=== PATIENT | female | born 1950 | race Caucasian/White ===

== ENCOUNTER 2017-03-17 03:28 | Inpatient (IN) | payer OTHER ==
[~2017-03-17] VITALS: Ht 152.4 cm; Wt 120.0 kg
[2017-03-17] VITALS (16 sets, daily range): BP systolic 62–93; BP diastolic 44–59
[2017-03-17 03:56] LABS: HEMATOCRIT 47.6 % (36.0-46.0); HEMOGLOBIN 15.4 G/DL (11.9-15.5); MCH 29.3 PG (29.0-34.0); MCHC 32.4 G/DL (30.0-36.0); MCV 90.7 FL (83-99); PLATELET COUNT 361 K/uL (156-360); RBC DIS.WIDTH-CV 13.3 % (11.8-14.6); RBC DIS.WIDTH-SD 45.1 % (39-53); RED BLOOD COUNT 5.25 M/uL (3.80-5.20); WHITE BLOOD COUNT 8.5 K/uL (4.1-10.2)
[2017-03-17 04:06] LABS: ALBUMIN 3.4 g/dL (3.2-4.8)
[2017-03-17 04:07] LABS: CHLORIDE 100 mEq/L (99-109); POTASSIUM 3.7 mEq/L (3.7-5.4); SODIUM 135 mEq/L (136-147)
[2017-03-17 04:09] LABS: GLUCOSE 186 mg/dL (70-99); TOTAL PROTEIN 7.2 g/dL (6.4-8.3)
[2017-03-17 04:11] LABS: TOTAL BILIRUBIN 2.5 mg/dL (0.0-1.0)
[2017-03-17 04:12] LABS: ALKALINE PHOSPHATASE 54 IU/L (3-129)
[2017-03-17 04:13] LABS: CREATININE 2.8 mg/dL (0.6-1.3); GFR ESTIMATE (CALCULATED) 18 mL/min/
[2017-03-17 04:14] LABS: AST (GOT) 25 IU/L (2-34); UREA NITROGEN (BUN) 29 mg/dL (9-23)
[2017-03-17 04:16] LABS: ALT (GPT) 24 IU/L (3-49)
[2017-03-17 04:17] LABS: TROP-I INTERPRETATION INDETERMINATE; TROPONIN-I 0.49 ng/mL (0.0-0.30)
[2017-03-17 04:53] LABS: APPEARANCE CLOUDY ((CLEAR)); COLOR DK YELLOW ((YELLOW))
[2017-03-17 04:54] LABS: BILIRUBIN NEGATIVE; BLOOD TRACE; GLUCOSE (STRIP) NEGATIVE; KETONES NEGATIVE; LEUKOCYTES NEGATIVE; NITRITE NEGATIVE; PROTEIN (STRIP) TRACE; UROBILINOGEN 0.2 MG/DL (0.2-1.0)
[2017-03-17 04:55] LABS: RED BLOOD CELLS 0-5 /HPF (0-5); WHITE BLOOD CELLS 0-5 /HPF (0-5)
[2017-03-17 04:56] LABS: AMORPHOUS URATES CRYSTALS 3+; BACTERIA 2+ /HPF; EPITHELIAL CELLS 3+ /HPF; MUCUS 3+ /LPF; UCUL ADDED? YES
[2017-03-17 10:41] LABS: TROP-I INTERPRETATION NEGATIVE; TROPONIN-I 0.26 ng/mL (0.0-0.30)
[2017-03-17 12:55] LABS: HEMATOCRIT 40.2 % (36.0-46.0); MCHC 31.6 G/DL (30.0-36.0); RBC DIS.WIDTH-CV 13.9 % (11.8-14.6); RED BLOOD COUNT 4.24 M/uL (3.80-5.20)
[2017-03-17 12:58] LABS: HEMOGLOBIN 12.7 G/DL (11.9-15.5); MCV 94.8 FL (83-99)
[2017-03-17 13:19] LABS: ABS NEUTROPHIL COUNT 5.7; ALKALINE PHOSPHATASE 26 IU/L (3-129); ALT (GPT) 22 IU/L (3-49); AST (GOT) 51 IU/L (2-34); BAND NEUTROPHILS 67.6 % (0-8.0); BURR CELLS 1+; CHLORIDE 115 MEQ/L (99-109); EOSINOPHIL ABS CT 0; LYMPHOCYTES 17.1 % (15.0-45.0); MAGNESIUM 1.4 mg/dl (1.3-2.7); METAMYELOCYTES 1.8 %; MONOCYTES 5.4 % (0-9.0); MYELOCYTES 4.5 %; OVALOCYTES 1+; PHOSPHORUS 4.3 mg/dL (2.5-4.9); PLAT.SUFFICIENCY ADEQUATE; PLATELET CLUMPS PRESENT - PLATELET COUNT APPEARS ADQ.; PLATELET COUNT UNABLE TO REPORT K/uL (156-360); POIKILOCYTOSIS 2+; SEG.NEUTROPHILS 3.6 % (46.0-76.0); SODIUM 138 MEQ/L (136-147); TOTAL BILIRUBIN 1.2 MG/DL (0.0-1.0); TOTAL PROTEIN 3.9 G/DL (6.4-8.3); TOX.VACUOLIZATION 2+; UREA NITROGEN (BUN) 33 mg/dL (9-23)
[2017-03-17 13:20] LABS: CREATININE 2.2 MG/DL (0.6-1.3); GFR ESTIMATE (CALCULATED) 24 mL/min/; GLUCOSE 89 mg/dL (70-99); POTASSIUM 5.5 MEQ/L (3.7-5.4)
[2017-03-18] VITALS (28 sets, daily range): BP systolic 82–129; BP diastolic 45–75
[2017-03-18 11:33] LABS: HEMATOCRIT 34.6 % (36.0-46.0); MCH 28.7 PG (29.0-34.0); MCHC 30.6 G/DL (30.0-36.0); MCV 93.8 FL (83-99); PLATELET COUNT 215 K/uL (156-360); RBC DIS.WIDTH-CV 14.4 % (11.8-14.6); RBC DIS.WIDTH-SD 50.3 % (39-53); RED BLOOD COUNT 3.69 M/uL (3.80-5.20)
[2017-03-18 11:34] LABS: CHLORIDE 113 MEQ/L (99-109); GLUCOSE 87 mg/dL (70-99); POTASSIUM 5.8 MEQ/L (3.7-5.4); SODIUM 139 MEQ/L (136-147); UREA NITROGEN (BUN) 45 mg/dL (9-23)
[2017-03-18 11:38] LABS: HEMOGLOBIN 10.6 G/DL (11.9-15.5)
[2017-03-18 11:52] LABS: ABS NEUTROPHIL COUNT 9.8; BURR CELLS 3+; EOSINOPHIL ABS CT 0; LYMPHOCYTES 3.8 % (15.0-45.0); METAMYELOCYTES 1.9 %; MONOCYTES 4.8 % (0-9.0); OVALOCYTES 1+; PLAT.SUFFICIENCY ADEQUATE; POIKILOCYTOSIS 3+
[2017-03-18 11:53] LABS: CREATININE 3.5 MG/DL (0.6-1.3); GFR ESTIMATE (CALCULATED) 14 mL/min/
[2017-03-18 12:01] LABS: TROP-I INTERPRETATION INDETERMINATE; TROPONIN-I 0.38 ng/mL (0.0-0.30)
[2017-03-18 12:04] LABS: BAND NEUTROPHILS 24.8 % (0-8.0); SEG.NEUTROPHILS 64.7 % (46.0-76.0)
[2017-03-18 17:51] LABS: CHLORIDE 109 MEQ/L (99-109); GFR ESTIMATE (CALCULATED) 12 mL/min/; GLUCOSE 183 mg/dL (70-99); POTASSIUM 4.9 MEQ/L (3.7-5.4); SODIUM 137 MEQ/L (136-147); UREA NITROGEN (BUN) 48 mg/dL (9-23)
[2017-03-19] VITALS (23 sets, daily range): BP systolic 115–167; BP diastolic 61–88
[2017-03-19 04:52] LABS: HEMATOCRIT 28.1 % (36.0-46.0); HEMOGLOBIN 9.1 G/DL (11.9-15.5); MCH 29.3 PG (29.0-34.0); MCHC 32.4 G/DL (30.0-36.0); MCV 90.4 FL (83-99); PLATELET COUNT 154 K/uL (156-360); RBC DIS.WIDTH-CV 14.6 % (11.8-14.6); RBC DIS.WIDTH-SD 48.9 % (39-53); RED BLOOD COUNT 3.11 M/uL (3.80-5.20); WHITE BLOOD COUNT 8.7 K/uL (4.1-10.2)
[2017-03-19 05:05] LABS: ALBUMIN 2.9 g/dL (3.2-4.8); CHLORIDE 104 mEq/L (99-109); POTASSIUM 4.5 mEq/L (3.7-5.4); SODIUM 138 mEq/L (136-147)
[2017-03-19 05:07] LABS: GLUCOSE 166 mg/dL (70-99)
[2017-03-19 05:11] LABS: ALKALINE PHOSPHATASE 35 IU/L (3-129); CREATININE 4.6 mg/dL (0.6-1.3); GFR ESTIMATE (CALCULATED) 10 mL/min/
[2017-03-19 05:12] LABS: UREA NITROGEN (BUN) 50 mg/dL (9-23)
[2017-03-19 05:35] LABS: ALT (GPT) 46 IU/L (3-49); AST (GOT) 118 IU/L (2-34)
[2017-03-19 05:37] LABS: BASOPHIL (%) 0.3 % (0-1); EOSINOPHIL (%) 0.3 % (0-5); IMMATURE GRANULOCYTE (%) 0.3 % (0.0-0.7); LYMPHOCYTE (%) 6.2 % (15-42); LYMPHOCYTE COUNT 0.5 K/uL (1.0-2.8); MONOCYTE (%) 4.3 % (3-12); MONOCYTE COUNT 0.4 K/uL (0-0.8); NEUTROPHIL (%) 88.6 % (45-76); NEUTROPHIL COUNT 7.7 K/uL (1.8-6.4)
[2017-03-19] MEDS ORDERED: COZAAR100 MG PO (12:24)
[2017-03-19] MEDS ORDERED: LIPITOR40 MG PO (12:24)
[2017-03-20] VITALS (14 sets, daily range): BP systolic 145–209; BP diastolic 72–110
[2017-03-20 09:28] LABS: BASOPHIL (%) 0.2 % (0-1); EOSINOPHIL (%) 0.7 % (0-5); EOSINOPHIL COUNT 0.1 K/uL (0-0.3); HEMATOCRIT 30.7 % (36.0-46.0); IMMATURE GRANULOCYTE (%) 0.7 % (0.0-0.7); LYMPHOCYTE (%) 7.9 % (15-42); LYMPHOCYTE COUNT 0.7 K/uL (1.0-2.8); MCH 29.5 PG (29.0-34.0); MCHC 32.6 G/DL (30.0-36.0); MCV 90.6 FL (83-99); MONOCYTE (%) 7.1 % (3-12); MONOCYTE COUNT 0.6 K/uL (0-0.8); NEUTROPHIL (%) 83.4 % (45-76); NEUTROPHIL COUNT 7.4 K/uL (1.8-6.4); PLATELET COUNT 160 K/uL (156-360); RBC DIS.WIDTH-CV 14.8 % (11.8-14.6); RBC DIS.WIDTH-SD 49.1 % (39-53); RED BLOOD COUNT 3.39 M/uL (3.80-5.20); WHITE BLOOD COUNT 8.9 K/uL (4.1-10.2)
[2017-03-20 09:55] LABS: CHLORIDE 104 MEQ/L (99-109); GFR ESTIMATE (CALCULATED) 8 mL/min/; POTASSIUM 4.4 MEQ/L (3.7-5.4); SODIUM 143 MEQ/L (136-147); UREA NITROGEN (BUN) 63 mg/dL (9-23)
[2017-03-20 09:56] LABS: CREATININE 5.7 MG/DL (0.6-1.3); GLUCOSE 90 mg/dL (70-99)
[2017-03-21 02:00] VITALS: BP 185/84
[2017-03-21 03:00] VITALS: BP 178/54
[2017-03-21 06:28] LABS: CHLORIDE 102 MEQ/L (99-109); GFR ESTIMATE (CALCULATED) 7 mL/min/; GLUCOSE 87 mg/dL (70-99); POTASSIUM 4.6 MEQ/L (3.7-5.4); SODIUM 143 MEQ/L (136-147); UREA NITROGEN (BUN) 80 mg/dL (9-23)
[2017-03-21 08:00] VITALS: BP 171/81
[2017-03-21 08:01] LABS: BASOPHIL (%) 0.2 % (0-1); EOSINOPHIL (%) 0.5 % (0-5); HEMATOCRIT 35.1 % (36.0-46.0); HEMOGLOBIN 11.6 G/DL (11.9-15.5); IMMATURE GRANULOCYTE (%) 0.8 % (0.0-0.7); LYMPHOCYTE (%) 10.5 % (15-42); LYMPHOCYTE COUNT 0.9 K/uL (1.0-2.8); MCH 29.4 PG (29.0-34.0); MCV 88.9 FL (83-99); MONOCYTE (%) 11.6 % (3-12); NEUTROPHIL (%) 76.4 % (45-76); NEUTROPHIL COUNT 6.3 K/uL (1.8-6.4); RBC DIS.WIDTH-CV 14.6 % (11.8-14.6); RBC DIS.WIDTH-SD 47.7 % (39-53); RED BLOOD COUNT 3.95 M/uL (3.80-5.20); WHITE BLOOD COUNT 8.3 K/uL (4.1-10.2)
[2017-03-21 08:21] LABS: PLATELET CLUMPS PRESENT - PLATELET COUNT APPEARS ADQ.
[2017-03-21 08:22] LABS: PLATELET COUNT UNABLE TO REPORT K/uL (156-360)
[2017-03-21 08:28] LABS: Estimated Average Glucose 134 mg/dL (70-123); HEMOGLOBIN A1c (GLYCOHEMOGLOB) 6.3 % HGB (Below 5.7)
[2017-03-21 11:50] VITALS: BP 124/76; BP 154/84
[2017-03-21 16:00] VITALS: BP 161/78; BP 171/98
[2017-03-21 20:29] LABS: C DIFF TOXIN POSITIVE (NEGATIVE)
[2017-03-21 22:04] VITALS: BP 184/80
[2017-03-22 01:31] VITALS: BP 158/76
[2017-03-22 05:39] VITALS: BP 159/70
[2017-03-22 06:41] LABS: CHLORIDE 99 MEQ/L (99-109); CREATININE 5.1 MG/DL (0.6-1.3); GFR ESTIMATE (CALCULATED) 9 mL/min/; GLUCOSE 94 mg/dL (70-99); POTASSIUM 3.8 MEQ/L (3.7-5.4); SODIUM 138 MEQ/L (136-147); UREA NITROGEN (BUN) 94 mg/dL (9-23)
[2017-03-22 07:11] LABS: HEMOGLOBIN 10.8 G/DL (11.9-15.5); MCH 28.6 PG (29.0-34.0); MCHC 32.7 G/DL (30.0-36.0); MCV 87.3 FL (83-99); PLATELET COUNT 232 K/uL (156-360); RBC DIS.WIDTH-CV 14.3 % (11.8-14.6); RBC DIS.WIDTH-SD 45.9 % (39-53); RED BLOOD COUNT 3.78 M/uL (3.80-5.20); WHITE BLOOD COUNT 13.2 K/uL (4.1-10.2)
[2017-03-22 07:41] LABS: ANISOCYTOSIS 1+; BASOPHIL (%) 0.3 % (0-1); EOSINOPHIL (%) 0.8 % (0-5); EOSINOPHIL COUNT 0.1 K/uL (0-0.3); LYMPHOCYTE (%) 10.7 % (15-42); LYMPHOCYTE COUNT 1.4 K/uL (1.0-2.8); MONOCYTE (%) 7.5 % (3-12); NEUTROPHIL (%) 79.7 % (45-76); NEUTROPHIL COUNT 10.5 K/uL (1.8-6.4)
[2017-03-22 08:28] VITALS: BP 151/74
[2017-03-22 11:13] VITALS: BP 159/82
[2017-03-22 14:12] LABS: APPEARANCE SL.HAZY ((CLEAR)); BILIRUBIN NEGATIVE; BLOOD LARGE; COLOR YELLOW ((YELLOW)); GLUCOSE (STRIP) NEGATIVE; KETONES NEGATIVE; LEUKOCYTES NEGATIVE; NITRITE NEGATIVE; PROTEIN (STRIP) 30; SPECIFIC GRAVITY 1.013 (1.000-1.030); UROBILINOGEN 0.2 MG/DL (0.2-1.0)
[2017-03-22 14:28] LABS: RED BLOOD CELLS TNTC /HPF (0-5)
[2017-03-22 14:29] LABS: EPITHELIAL CELLS 1+ /HPF; MUCUS NONE SEEN /LPF; WHITE BLOOD CELLS NONE SEEN /HPF (0-5)
[2017-03-22 14:30] LABS: BACTERIA 1+ /HPF
[2017-03-22 15:21] VITALS: BP 166/84
[2017-03-22 20:45] VITALS: BP 152/70
[2017-03-23] VITALS (7 sets, daily range): BP systolic 134–178; BP diastolic 62–79
[2017-03-23 05:32] LABS: HEMATOCRIT 34.1 % (36.0-46.0); HEMOGLOBIN 11.1 G/DL (11.9-15.5); MCH 29.1 PG (29.0-34.0); MCHC 32.6 G/DL (30.0-36.0); MCV 89.3 FL (83-99); PLATELET COUNT 243 K/uL (156-360); RBC DIS.WIDTH-CV 14.6 % (11.8-14.6); RBC DIS.WIDTH-SD 47.4 % (39-53); RED BLOOD COUNT 3.82 M/uL (3.80-5.20); WHITE BLOOD COUNT 22.8 K/uL (4.1-10.2)
[2017-03-23 06:02] LABS: CHLORIDE 101 MEQ/L (99-109); CREATININE 4.7 MG/DL (0.6-1.3); GFR ESTIMATE (CALCULATED) 10 mL/min/; GLUCOSE 87 mg/dL (70-99); HDL CHOLESTEROL 25 MG/DL (Desirable>=50); LDL CHOLESTEROL 41 mg/dL (Desirable<100); NON-HDL CHOLESTEROL 85 mg/dL (Desirable<160); PHOSPHORUS 5.6 mg/dL (2.5-4.9); POTASSIUM 3.8 MEQ/L (3.7-5.4); SODIUM 141 MEQ/L (136-147); TOTAL CHOLESTEROL 110 mg/dL (Desirable<200); TRIGLYCERIDES 222 MG/DL (Normal: <150); UREA NITROGEN (BUN) 92 mg/dL (9-23)
[2017-03-23 06:07] LABS: ABS NEUTROPHIL COUNT 20.5; ATYPICAL LYMPHOCYTE 0.9 %; EOSINOPHIL ABS CT 0.3; EOSINOPHILS 1.3 % (0-5.0); LYMPHOCYTES 5.2 % (15.0-45.0); MONOCYTES 2.6 % (0-9.0); OVALOCYTES 1+; PLAT.SUFFICIENCY ADEQUATE; SCHISTOCYTES 1+
[2017-03-23 06:08] LABS: BAND NEUTROPHILS 0.4 % (0-8.0); SEG.NEUTROPHILS 89.6 % (46.0-76.0)
[2017-03-23 06:10] LABS: MAGNESIUM 1.8 mg/dl (1.3-2.7)
[2017-03-24 03:00] VITALS: BP 171/71
[2017-03-24 08:24] LABS: HEMATOCRIT 31.7 % (36.0-46.0); HEMOGLOBIN 10.6 G/DL (11.9-15.5); MCH 29.8 PG (29.0-34.0); MCHC 33.4 G/DL (30.0-36.0); PLATELET COUNT 306 K/uL (156-360); RBC DIS.WIDTH-CV 14.5 % (11.8-14.6); RBC DIS.WIDTH-SD 47.1 % (39-53); RED BLOOD COUNT 3.56 M/uL (3.80-5.20); WHITE BLOOD COUNT 23.5 K/uL (4.1-10.2)
[2017-03-24 08:25] VITALS: BP 141/67
[2017-03-24 08:51] LABS: ALBUMIN 2.2 G/DL (3.2-4.8); CHLORIDE 102 MEQ/L (99-109); SODIUM 136 MEQ/L (136-147)
[2017-03-24 08:53] LABS: TOTAL BILIRUBIN 0.7 MG/DL (0.0-1.0)
[2017-03-24 08:57] LABS: ALT (GPT) 19 IU/L (3-49); CREATININE 3.6 MG/DL (0.6-1.3); GFR ESTIMATE (CALCULATED) 13 mL/min/; GLUCOSE 117 mg/dL (70-99); TOTAL PROTEIN 4.7 G/DL (6.4-8.3); UREA NITROGEN (BUN) 83 mg/dL (9-23)
[2017-03-24 08:58] LABS: ALKALINE PHOSPHATASE 57 IU/L (3-129); AST (GOT) 18 IU/L (2-34)
[2017-03-24 11:57] VITALS: BP 164/75
[2017-03-24 16:40] VITALS: BP 151/72
[2017-03-24 19:00] VITALS: BP 169/79
[2017-03-24 23:00] VITALS: BP 171/74
[2017-03-25] VITALS (8 sets, daily range): BP systolic 160–191; BP diastolic 72–93
[2017-03-25 05:52] LABS: HEMATOCRIT 31.5 % (36.0-46.0); HEMOGLOBIN 10.2 G/DL (11.9-15.5); MCH 28.4 PG (29.0-34.0); MCHC 32.4 G/DL (30.0-36.0); MCV 87.7 FL (83-99); PLATELET COUNT 391 K/uL (156-360); RBC DIS.WIDTH-CV 14.3 % (11.8-14.6); RBC DIS.WIDTH-SD 46.4 % (39-53); RED BLOOD COUNT 3.59 M/uL (3.80-5.20); WHITE BLOOD COUNT 22.6 K/uL (4.1-10.2)
[2017-03-25 06:19] LABS: BASOPHIL (%) 0.2 % (0-1); EOSINOPHIL (%) 1.1 % (0-5); EOSINOPHIL COUNT 0.2 K/uL (0-0.3); IMMATURE GRANULOCYTE (%) 1.1 % (0.0-0.7); LYMPHOCYTE (%) 6.8 % (15-42); LYMPHOCYTE COUNT 1.5 K/uL (1.0-2.8); MONOCYTE (%) 5.5 % (3-12); MONOCYTE COUNT 1.3 K/uL (0-0.8); NEUTROPHIL (%) 85.3 % (45-76); NEUTROPHIL COUNT 19.3 K/uL (1.8-6.4)
[2017-03-25 06:29] LABS: CHLORIDE 102 MEQ/L (99-109); GFR ESTIMATE (CALCULATED) 17 mL/min/; GLUCOSE 106 mg/dL (70-99); MAGNESIUM 1.7 mg/dl (1.3-2.7); PHOSPHORUS 5.3 mg/dL (2.5-4.9); POTASSIUM 3.6 MEQ/L (3.7-5.4); SODIUM 138 MEQ/L (136-147); UREA NITROGEN (BUN) 78 mg/dL (9-23)
[2017-03-25 06:30] LABS: CREATININE 2.9 MG/DL (0.6-1.3)
[2017-03-26] VITALS (7 sets, daily range): BP systolic 138–160; BP diastolic 8–80
[2017-03-26 07:11] LABS: BASOPHIL (%) 0.2 % (0-1); EOSINOPHIL (%) 1.4 % (0-5); EOSINOPHIL COUNT 0.3 K/uL (0-0.3); HEMATOCRIT 32.3 % (36.0-46.0); HEMOGLOBIN 10.8 G/DL (11.9-15.5); IMMATURE GRANULOCYTE (%) 0.8 % (0.0-0.7); LYMPHOCYTE (%) 7.7 % (15-42); LYMPHOCYTE COUNT 1.5 K/uL (1.0-2.8); MCH 29.5 PG (29.0-34.0); MCHC 33.4 G/DL (30.0-36.0); MCV 88.3 FL (83-99); MONOCYTE (%) 6.9 % (3-12); MONOCYTE COUNT 1.4 K/uL (0-0.8); NEUTROPHIL COUNT 16.4 K/uL (1.8-6.4); PLATELET COUNT 439 K/uL (156-360); RBC DIS.WIDTH-CV 14.6 % (11.8-14.6); RBC DIS.WIDTH-SD 46.8 % (39-53); RED BLOOD COUNT 3.66 M/uL (3.80-5.20); WHITE BLOOD COUNT 19.8 K/uL (4.1-10.2)
[2017-03-26 07:38] LABS: ALBUMIN 2.1 G/DL (3.2-4.8); ALKALINE PHOSPHATASE 53 IU/L (3-129); ALT (GPT) 24 IU/L (3-49); AST (GOT) 23 IU/L (2-34); CHLORIDE 106 MEQ/L (99-109); GLUCOSE 116 mg/dL (70-99); MAGNESIUM 1.6 mg/dl (1.3-2.7); PHOSPHORUS 5.3 mg/dL (2.5-4.9); POTASSIUM 4.1 MEQ/L (3.7-5.4); SODIUM 138 MEQ/L (136-147); UREA NITROGEN (BUN) 69 mg/dL (9-23)
[2017-03-26 07:41] LABS: CREATININE 2.3 MG/DL (0.6-1.3); GFR ESTIMATE (CALCULATED) 23 mL/min/; TOTAL BILIRUBIN 0.9 MG/DL (0.0-1.0)
[2017-03-27 04:15] VITALS: BP 155/70
[2017-03-27 07:24] LABS: BASOPHIL (%) 0.3 % (0-1); BASOPHIL COUNT 0.1 K/uL (0-0.1); EOSINOPHIL (%) 0.9 % (0-5); EOSINOPHIL COUNT 0.2 K/uL (0-0.3); HEMATOCRIT 32.4 % (36.0-46.0); HEMOGLOBIN 10.4 G/DL (11.9-15.5); IMMATURE GRANULOCYTE (%) 0.7 % (0.0-0.7); LYMPHOCYTE (%) 8.6 % (15-42); LYMPHOCYTE COUNT 1.6 K/uL (1.0-2.8); MCH 28.3 PG (29.0-34.0); MCHC 32.1 G/DL (30.0-36.0); MCV 88.3 FL (83-99); MONOCYTE (%) 9.1 % (3-12); MONOCYTE COUNT 1.7 K/uL (0-0.8); NEUTROPHIL (%) 80.4 % (45-76); NEUTROPHIL COUNT 14.6 K/uL (1.8-6.4); PLATELET COUNT 555 K/uL (156-360); RBC DIS.WIDTH-CV 14.6 % (11.8-14.6); RBC DIS.WIDTH-SD 46.9 % (39-53); RED BLOOD COUNT 3.67 M/uL (3.80-5.20); WHITE BLOOD COUNT 18.1 K/uL (4.1-10.2)
[2017-03-27 07:50] LABS: CHLORIDE 106 MEQ/L (99-109); CREATININE 2.1 MG/DL (0.6-1.3); GFR ESTIMATE (CALCULATED) 25 mL/min/; GLUCOSE 108 mg/dL (70-99); MAGNESIUM 1.6 mg/dl (1.3-2.7); PHOSPHORUS 4.9 mg/dL (2.5-4.9); POTASSIUM 4.3 MEQ/L (3.7-5.4); SODIUM 139 MEQ/L (136-147); UREA NITROGEN (BUN) 58 mg/dL (9-23)
[2017-03-27 08:30] VITALS: BP 168/70
[2017-03-27 12:43] VITALS: BP 140/74
[2017-03-27 16:30] VITALS: BP 146/78
[2017-03-28] VITALS (7 sets, daily range): BP systolic 142–164; BP diastolic 60–70
[2017-03-28 06:06] LABS: CHLORIDE 107 MEQ/L (99-109); CREATININE 1.9 MG/DL (0.6-1.3); GFR ESTIMATE (CALCULATED) 28 mL/min/; GLUCOSE 105 mg/dL (70-99); POTASSIUM 4.6 MEQ/L (3.7-5.4); SODIUM 138 MEQ/L (136-147); UREA NITROGEN (BUN) 56 mg/dL (9-23)
[2017-03-29 04:16] VITALS: BP 152/70
[2017-03-29 05:54] LABS: BASOPHIL (%) 0.4 % (0-1); BASOPHIL COUNT 0.1 K/uL (0-0.1); EOSINOPHIL (%) 1.5 % (0-5); EOSINOPHIL COUNT 0.2 K/uL (0-0.3); HEMOGLOBIN 10.2 G/DL (11.9-15.5); IMMATURE GRANULOCYTE (%) 0.7 % (0.0-0.7); LYMPHOCYTE (%) 13.2 % (15-42); LYMPHOCYTE COUNT 1.8 K/uL (1.0-2.8); MCH 28.9 PG (29.0-34.0); MCHC 32.9 G/DL (30.0-36.0); MCV 87.8 FL (83-99); MONOCYTE (%) 11.3 % (3-12); MONOCYTE COUNT 1.5 K/uL (0-0.8); NEUTROPHIL (%) 72.9 % (45-76); NEUTROPHIL COUNT 9.9 K/uL (1.8-6.4); PLATELET COUNT 546 K/uL (156-360); RBC DIS.WIDTH-CV 14.6 % (11.8-14.6); RBC DIS.WIDTH-SD 46.6 % (39-53); RED BLOOD COUNT 3.53 M/uL (3.80-5.20); WHITE BLOOD COUNT 13.5 K/uL (4.1-10.2)
[2017-03-29 06:21] LABS: CHLORIDE 110 MEQ/L (99-109); CREATININE 1.9 MG/DL (0.6-1.3); GFR ESTIMATE (CALCULATED) 28 mL/min/; GLUCOSE 96 mg/dL (70-99); POTASSIUM 3.8 MEQ/L (3.7-5.4); SODIUM 142 MEQ/L (136-147); UREA NITROGEN (BUN) 51 mg/dL (9-23)
[2017-03-29 08:37] VITALS: BP 150/74
[2017-03-29 11:24] VITALS: BP 144/64
[2017-03-29 16:37] VITALS: BP 136/82
[2017-03-29 19:26] VITALS: BP 146/68
[2017-03-30 00:05] VITALS: BP 144/76
[2017-03-30 04:19] VITALS: BP 142/84
[2017-03-30 06:22] LABS: CHLORIDE 110 MEQ/L (99-109); SODIUM 140 MEQ/L (136-147)
[2017-03-30 06:23] LABS: CREATININE 1.7 MG/DL (0.6-1.3); GFR ESTIMATE (CALCULATED) 32 mL/min/; GLUCOSE 107 mg/dL (70-99); UREA NITROGEN (BUN) 47 mg/dL (9-23)
[2017-03-30 06:24] LABS: POTASSIUM 4.8 MEQ/L (3.7-5.4)
[2017-03-30 06:38] LABS: BASOPHIL (%) 0.4 % (0-1); BASOPHIL COUNT 0.1 K/uL (0-0.1); EOSINOPHIL COUNT 0.1 K/uL (0-0.3); HEMATOCRIT 29.5 % (36.0-46.0); HEMOGLOBIN 9.9 G/DL (11.9-15.5); IMMATURE GRANULOCYTE (%) 0.7 % (0.0-0.7); LYMPHOCYTE (%) 11.1 % (15-42); LYMPHOCYTE COUNT 1.6 K/uL (1.0-2.8); MCH 29.6 PG (29.0-34.0); MCHC 33.6 G/DL (30.0-36.0); MCV 88.3 FL (83-99); MONOCYTE (%) 10.4 % (3-12); MONOCYTE COUNT 1.5 K/uL (0-0.8); NEUTROPHIL (%) 76.4 % (45-76); NEUTROPHIL COUNT 10.7 K/uL (1.8-6.4); RBC DIS.WIDTH-CV 14.9 % (11.8-14.6); RBC DIS.WIDTH-SD 48.2 % (39-53); RED BLOOD COUNT 3.34 M/uL (3.80-5.20)
[2017-03-30 06:50] LABS: PLAT.SUFFICIENCY INCREASED
[2017-03-30 06:53] LABS: PLATELET COUNT 370 K/uL (156-360)
[2017-03-30 07:45] LABS: POTASSIUM 4.7 MEQ/L (3.7-5.4)
[2017-03-30 08:02] VITALS: BP 134/78
[2017-03-30] MEDS ORDERED: VANCOMYCIN HCL125 MG PO (10:05)
[2017-03-30 11:49] VITALS: BP 138/82
== END 2017-03-30 14:56 | disposition home health service (06) | DRG 871 ==
LOC: EME 03:28 → SDC 06:20 → ENRESERV 06:35 → 4EAST 08:15 → 3EAST 08:15 → 4WEST 08:15 → 2SOUTH 08:15 → 4WEST 10:18 → ENRESERV 03-20 18:11 → 4EAST 03-20 22:52 → ENRESERV 03-25 20:39 → 3EAST 03-25 23:10
PROVIDERS: Emergency Medicine Emergency Medical Services; Family Medicine; Internal Medicine Critical Care Medicine; Internal Medicine Nephrology; Nurse Practitioner Adult Health; Physician Assistant Surgical; Surgery
PROC: 3E1M38Z Irrigation of Peritoneal Cavity using Irrigating Substance, Percutaneous Approach (ICD-10-PCS; principal; 2017-03-17)
PROC: 05HM33Z Insertion of Infusion Device into Right Internal Jugular Vein, Percutaneous Approach (ICD-10-PCS; principal; 2017-03-17)
DX: A41.9 Sepsis, unspecified organism (principal); K57.21 Diverticulitis of large intestine with perforation and abscess with bleeding; N17.0 Acute kidney failure with tubular necrosis; A04.72 Enterocolitis due to Clostridium difficile, not specified as recurrent; E78.5 Hyperlipidemia, unspecified; I48.91 Unspecified atrial fibrillation; I44.7 Left bundle-branch block, unspecified; R65.21 Severe sepsis with septic shock; I11.9 Hypertensive heart disease without heart failure; Z68.42 Body mass index [BMI] 45.0-49.9, adult; E66.9 Obesity, unspecified; K80.20 Calculus of gallbladder without cholecystitis without obstruction; K21.0 Gastro-esophageal reflux disease with esophagitis; E87.2 Acidosis; E87.70 Fluid overload, unspecified; E87.5 Hyperkalemia; E83.51 Hypocalcemia; J18.9 Pneumonia, unspecified organism; E11.9 Type 2 diabetes mellitus without complications; E87.6 Hypokalemia; I25.9 Chronic ischemic heart disease, unspecified; K66.8 Other specified disorders of peritoneum; Z91.19 Patient's noncompliance with other medical treatment and regimen; Z79.4 Long term (current) use of insulin; Z87.442 Personal history of urinary calculi
CPT/HCPCS: 71045; 71250; 74176; 80047; 80048; 80048 91; 80053; 80061; 81003; 83036; 83605; 83735; 84100; 84484; 84999; 85025; 85027; 87040; 87070; 87077; 87086; 87493; 87506; 87641; 93005; 94799; 97530 GO; 97530 GP; 99281; 99285; C1751; J0330; J1170; J1644; J1650; J1815; J1940; J2250; J2270; J2370; J2405; J2543; J2710; J3010; J3243; J3260; J7040; J7050; J7070; J7120; P9047; S0028

== ENCOUNTER 2017-04-09 22:06 | Emergency (ER) | payer OTHER ==
[~2017-04-09] VITALS: Ht 147.3 cm; Wt 103.2 kg
[~2017-04-09 22:06] MED LIST: COZAAR100 MG PO; LIPITOR40 MG PO; VANCOMYCIN HCL125 MG PO
[2017-04-09 22:59] LABS: HEMATOCRIT 31.2 % (36.0-46.0); HEMOGLOBIN 10.2 G/DL (11.9-15.5); MCH 28.9 PG (29.0-34.0); MCHC 32.7 G/DL (30.0-36.0); MCV 88.4 FL (83-99); PLATELET COUNT 504 K/uL (156-360); RBC DIS.WIDTH-CV 14.6 % (11.8-14.6); RBC DIS.WIDTH-SD 47.1 % (39-53); RED BLOOD COUNT 3.53 M/uL (3.80-5.20); WHITE BLOOD COUNT 11.1 K/uL (4.1-10.2)
[2017-04-09 23:11] LABS: CHLORIDE 103 mEq/L (99-109); SODIUM 139 mEq/L (136-147)
[2017-04-09 23:13] LABS: GLUCOSE 101 mg/dL (70-99)
[2017-04-09 23:16] LABS: POTASSIUM 2.6 mEq/L (3.7-5.4)
[2017-04-09 23:17] LABS: CREATININE 0.8 mg/dL (0.6-1.3); GFR ESTIMATE (CALCULATED) > 59 mL/min/; TROP-I INTERPRETATION NEGATIVE; TROPONIN-I 0.03 ng/mL (0.0-0.30); UREA NITROGEN (BUN) 6 mg/dL (9-23)
[2017-04-10] MEDS ORDERED: NEBULIZER MC (05:08)
[2017-04-10] MEDS ORDERED: ALBUTEROL2.5 MG/3 M IH (05:08)
[2017-04-10] MEDS ORDERED: XARELTO15 MG PO (05:08)
[2017-04-10 05:43] VITALS: BP 160/65
== END 2017-04-10 05:44 | disposition home or self-care (01) ==
LOC: EME 22:06
PROVIDERS: Emergency Medicine Emergency Medical Services
DX: I26.99 Other pulmonary embolism without acute cor pulmonale (principal); R18.8 Other ascites; J45.909 Unspecified asthma, uncomplicated; N17.9 Acute kidney failure, unspecified; E78.5 Hyperlipidemia, unspecified; I10 Essential (primary) hypertension; Z88.6 Allergy status to analgesic agent
CPT/HCPCS: 71046; 71275; 80048; 83880; 84484; 85027; 85379; 93005; 94640; 99281; 99285

== ENCOUNTER → 2017-04-18 | Outpatient (CLI) | payer OTHER ==
[~2017-04-18] MED LIST changes: +ALBUTEROL2.5 MG/3 M IH; +DIFLUCAN100 MG PO; +NEBULIZER MC; +NORCO 5/3251 TABLET PO; +PRILOSEC20 MG PO; +XARELTO15 MG PO
[2017-04-18 08:33] LABS: INTER. NORMALIZED RATIO 1.4
[2017-04-18 08:36] LABS: PTT 28.4 SEC (25-37)
== END | disposition home or self-care (01) ==
LOC: OPR 07:49 → EDSTATUS 08:00 → OPR 04-20 08:00
PROVIDERS: Surgery
PROC: 0WH Anatomical Regions, General, Insertion (ICD-10-PCS; principal; 2017-04-18)
DX: K57.20 Diverticulitis of large intestine with perforation and abscess without bleeding (principal); B95.61 Methicillin susceptible Staphylococcus aureus infection as the cause of diseases classified elsewhere; I10 Essential (primary) hypertension; E78.5 Hyperlipidemia, unspecified; Z79.01 Long term (current) use of anticoagulants
CPT/HCPCS: 49406; 85610; 85730; 87147; 87205; C1769; J3010

== ENCOUNTER 2017-04-26 17:50 | Inpatient (IN) | payer OTHER ==
[~2017-04-26] VITALS: Ht 124.5 cm; Wt 92.9 kg
[2017-04-26 19:31] LABS: BASOPHIL (%) 0.1 % (0-1); EOSINOPHIL (%) 0.3 % (0-5); HEMATOCRIT 24.5 % (36.0-46.0); IMMATURE GRANULOCYTE (%) 0.6 % (0.0-0.7); LYMPHOCYTE (%) 8.5 % (15-42); LYMPHOCYTE COUNT 1.1 K/uL (1.0-2.8); MCH 27.6 PG (29.0-34.0); MCHC 33.1 G/DL (30.0-36.0); MONOCYTE (%) 4.2 % (3-12); MONOCYTE COUNT 0.6 K/uL (0-0.8); NEUTROPHIL (%) 86.3 % (45-76); NEUTROPHIL COUNT 11.6 K/uL (1.8-6.4); PLATELET COUNT 563 K/uL (156-360); RBC DIS.WIDTH-CV 15.2 % (11.8-14.6); RBC DIS.WIDTH-SD 46.5 % (39-53); RED BLOOD COUNT 2.93 M/uL (3.80-5.20); WHITE BLOOD COUNT 13.5 K/uL (4.1-10.2)
[2017-04-26 19:32] LABS: HEMOGLOBIN 8.1 G/DL (11.9-15.5); MCV 83.6 FL (83-99)
[2017-04-26 19:37] LABS: ALBUMIN 2.5 g/dL (3.2-4.8); CHLORIDE 91 mEq/L (99-109); SODIUM 134 mEq/L (136-147)
[2017-04-26 19:39] LABS: GLUCOSE 116 mg/dL (70-99); TOTAL PROTEIN 6.4 g/dL (6.4-8.3)
[2017-04-26 19:41] LABS: TOTAL BILIRUBIN 0.9 mg/dL (0.0-1.0)
[2017-04-26 19:43] LABS: ALKALINE PHOSPHATASE 67 IU/L (3-129); CREATININE 0.9 mg/dL (0.6-1.3); GFR ESTIMATE (CALCULATED) > 59 mL/min/
[2017-04-26 19:44] LABS: AST (GOT) 24 IU/L (2-34); UREA NITROGEN (BUN) 13 mg/dL (9-23)
[2017-04-26 19:46] LABS: ALT (GPT) 12 IU/L (3-49)
[2017-04-26 19:52] LABS: POTASSIUM 2.4 mEq/L (3.7-5.4)
[2017-04-26] MEDS ORDERED: AMOX TR-K CLV1 EAC4 PO (23:20)
[2017-04-26] MEDS ORDERED: ENDOCET 5-3251 EACH PO (23:21)
[2017-04-26] MEDS ORDERED: ATORVASTATIN CA10 MG PO (23:21)
[2017-04-26] MEDS ORDERED: LOSARTAN POTAS100 MG PO (23:22)
[2017-04-26] MEDS ORDERED: POTASSIUM-9999 MG PO (23:23)
[2017-04-26] MEDS ORDERED: TYLENOL EXTRA500 MG PO (23:24)
[2017-04-26] MEDS ORDERED: XARELTO20 MG PO (23:39)
[2017-04-27] VITALS (7 sets, daily range): BP systolic 118–140; BP diastolic 58–82
[2017-04-27 08:11] LABS: BASOPHIL (%) 0.2 % (0-1); EOSINOPHIL (%) 0.7 % (0-5); EOSINOPHIL COUNT 0.1 K/uL (0-0.3); HEMATOCRIT 23.7 % (36.0-46.0); HEMOGLOBIN 7.5 G/DL (11.9-15.5); IMMATURE GRANULOCYTE (%) 0.9 % (0.0-0.7); LYMPHOCYTE (%) 12.7 % (15-42); LYMPHOCYTE COUNT 1.6 K/uL (1.0-2.8); MCH 27.4 PG (29.0-34.0); MCHC 31.6 G/DL (30.0-36.0); MCV 86.5 FL (83-99); MONOCYTE (%) 5.7 % (3-12); MONOCYTE COUNT 0.7 K/uL (0-0.8); NEUTROPHIL (%) 79.8 % (45-76); NEUTROPHIL COUNT 9.8 K/uL (1.8-6.4); PLATELET COUNT 502 K/uL (156-360); RBC DIS.WIDTH-CV 15.8 % (11.8-14.6); RBC DIS.WIDTH-SD 49.6 % (39-53); RED BLOOD COUNT 2.74 M/uL (3.80-5.20); WHITE BLOOD COUNT 12.3 K/uL (4.1-10.2)
[2017-04-27 09:17] LABS: CHLORIDE 95 MEQ/L (99-109); GFR ESTIMATE (CALCULATED) 59 mL/min/; GLUCOSE 104 mg/dL (70-99); SODIUM 134 MEQ/L (136-147); UREA NITROGEN (BUN) 13 mg/dL (9-23)
[2017-04-27 09:20] LABS: POTASSIUM 3.1 MEQ/L (3.7-5.4)
[2017-04-27 15:00] LABS: ALBUMIN 2.2 G/DL (3.2-4.8); ALKALINE PHOSPHATASE 59 IU/L (3-129); ALT (GPT) 10 IU/L (3-49); AST (GOT) 24 IU/L (2-34); CHLORIDE 96 MEQ/L (99-109); GFR ESTIMATE (CALCULATED) 59 mL/min/; MAGNESIUM 1.2 mg/dl (1.3-2.7); SODIUM 133 MEQ/L (136-147); TOTAL BILIRUBIN 0.6 MG/DL (0.0-1.0); UREA NITROGEN (BUN) 13 mg/dL (9-23)
[2017-04-27 15:34] LABS: GLUCOSE 163 mg/dL (70-99)
[2017-04-28 03:50] VITALS: BP 107/57
[2017-04-28 07:38] VITALS: BP 147/73
[2017-04-28 08:08] LABS: BASOPHIL (%) 0.4 % (0-1); EOSINOPHIL COUNT 0.1 K/uL (0-0.3); HEMATOCRIT 23.2 % (36.0-46.0); HEMOGLOBIN 7.3 G/DL (11.9-15.5); IMMATURE GRANULOCYTE (%) 0.9 % (0.0-0.7); LYMPHOCYTE (%) 20.9 % (15-42); LYMPHOCYTE COUNT 1.6 K/uL (1.0-2.8); MCH 27.7 PG (29.0-34.0); MCHC 31.5 G/DL (30.0-36.0); MCV 87.9 FL (83-99); MONOCYTE (%) 6.8 % (3-12); MONOCYTE COUNT 0.5 K/uL (0-0.8); NEUTROPHIL COUNT 5.4 K/uL (1.8-6.4); PLATELET COUNT 513 K/uL (156-360); RBC DIS.WIDTH-CV 16.2 % (11.8-14.6); RBC DIS.WIDTH-SD 52.3 % (39-53); RED BLOOD COUNT 2.64 M/uL (3.80-5.20); WHITE BLOOD COUNT 7.8 K/uL (4.1-10.2)
[2017-04-28 08:48] LABS: CHLORIDE 95 MEQ/L (99-109); CREATININE 0.9 MG/DL (0.6-1.3); GFR ESTIMATE (CALCULATED) > 59 mL/min/; GLUCOSE 123 mg/dL (70-99); POTASSIUM 3.6 MEQ/L (3.7-5.4); SODIUM 135 MEQ/L (136-147); UREA NITROGEN (BUN) 13 mg/dL (9-23)
[2017-04-28 08:52] LABS: MAGNESIUM 1.7 mg/dl (1.3-2.7)
[2017-04-28 11:28] VITALS: BP 141/73
[2017-04-28 15:57] VITALS: BP 170/80
[2017-04-28 20:23] VITALS: BP 140/80
[2017-04-29] VITALS (7 sets, daily range): BP systolic 137–158; BP diastolic 58–90
[2017-04-29 06:24] LABS: BASOPHIL (%) 0.3 % (0-1); EOSINOPHIL (%) 0.7 % (0-5); EOSINOPHIL COUNT 0.1 K/uL (0-0.3); HEMOGLOBIN 7.6 G/DL (11.9-15.5); IMMATURE GRANULOCYTE (%) 0.7 % (0.0-0.7); LYMPHOCYTE (%) 20.1 % (15-42); LYMPHOCYTE COUNT 1.5 K/uL (1.0-2.8); MCH 27.8 PG (29.0-34.0); MCHC 31.7 G/DL (30.0-36.0); MCV 87.9 FL (83-99); MONOCYTE (%) 6.9 % (3-12); MONOCYTE COUNT 0.5 K/uL (0-0.8); NEUTROPHIL (%) 71.3 % (45-76); NEUTROPHIL COUNT 5.3 K/uL (1.8-6.4); PLATELET COUNT 554 K/uL (156-360); RBC DIS.WIDTH-CV 16.3 % (11.8-14.6); RBC DIS.WIDTH-SD 51.5 % (39-53); RED BLOOD COUNT 2.73 M/uL (3.80-5.20); WHITE BLOOD COUNT 7.4 K/uL (4.1-10.2)
[2017-04-29 06:49] LABS: CHLORIDE 98 MEQ/L (99-109); CREATININE 0.9 MG/DL (0.6-1.3); GFR ESTIMATE (CALCULATED) > 59 mL/min/; GLUCOSE 114 mg/dL (70-99); POTASSIUM 4.2 MEQ/L (3.7-5.4); SODIUM 137 MEQ/L (136-147); UREA NITROGEN (BUN) 9 mg/dL (9-23)
[2017-04-30 03:34] VITALS: BP 132/72
[2017-04-30 08:00] VITALS: BP 157/75
[2017-04-30 11:23] LABS: BASOPHIL (%) 0.3 % (0-1); EOSINOPHIL (%) 0.1 % (0-5); HEMATOCRIT 27.8 % (36.0-46.0); HEMOGLOBIN 8.6 G/DL (11.9-15.5); IMMATURE GRANULOCYTE (%) 0.5 % (0.0-0.7); LYMPHOCYTE (%) 24.8 % (15-42); LYMPHOCYTE COUNT 2.5 K/uL (1.0-2.8); MCHC 30.9 G/DL (30.0-36.0); MCV 87.4 FL (83-99); MONOCYTE (%) 5.7 % (3-12); MONOCYTE COUNT 0.6 K/uL (0-0.8); NEUTROPHIL (%) 68.6 % (45-76); NEUTROPHIL COUNT 6.8 K/uL (1.8-6.4); PLATELET COUNT 593 K/uL (156-360); RBC DIS.WIDTH-CV 16.6 % (11.8-14.6); RBC DIS.WIDTH-SD 51.3 % (39-53); RED BLOOD COUNT 3.18 M/uL (3.80-5.20); WHITE BLOOD COUNT 9.9 K/uL (4.1-10.2)
[2017-04-30 11:53] LABS: CHLORIDE 100 MEQ/L (99-109); CREATININE 0.7 MG/DL (0.6-1.3); GFR ESTIMATE (CALCULATED) > 59 mL/min/; GLUCOSE 118 mg/dL (70-99); MAGNESIUM 1.5 mg/dl (1.3-2.7); POTASSIUM 4.3 MEQ/L (3.7-5.4); SODIUM 137 MEQ/L (136-147); UREA NITROGEN (BUN) 7 mg/dL (9-23)
[2017-04-30 16:00] VITALS: BP 153/86
[2017-05-01 16:00] VITALS: BP 164/92
[2017-05-02 00:20] VITALS: BP 176/80
[2017-05-02 05:31] LABS: BASOPHIL (%) 0.3 % (0-1); EOSINOPHIL (%) 0.1 % (0-5); HEMATOCRIT 26.5 % (36.0-46.0); HEMOGLOBIN 8.3 G/DL (11.9-15.5); IMMATURE GRANULOCYTE (%) 0.4 % (0.0-0.7); LYMPHOCYTE (%) 31.6 % (15-42); LYMPHOCYTE COUNT 2.4 K/uL (1.0-2.8); MCH 27.1 PG (29.0-34.0); MCHC 31.3 G/DL (30.0-36.0); MCV 86.6 FL (83-99); MONOCYTE (%) 7.8 % (3-12); MONOCYTE COUNT 0.6 K/uL (0-0.8); NEUTROPHIL (%) 59.8 % (45-76); NEUTROPHIL COUNT 4.4 K/uL (1.8-6.4); PLATELET COUNT 490 K/uL (156-360); RBC DIS.WIDTH-CV 17.1 % (11.8-14.6); RBC DIS.WIDTH-SD 52.1 % (39-53); RED BLOOD COUNT 3.06 M/uL (3.80-5.20); WHITE BLOOD COUNT 7.4 K/uL (4.1-10.2)
[2017-05-02 05:41] LABS: CHLORIDE 102 MEQ/L (99-109); CREATININE 0.8 MG/DL (0.6-1.3); GFR ESTIMATE (CALCULATED) > 59 mL/min/; GLUCOSE 110 mg/dL (70-99); MAGNESIUM 1.4 mg/dl (1.3-2.7); SODIUM 137 MEQ/L (136-147); UREA NITROGEN (BUN) 4 mg/dL (9-23)
[2017-05-02 07:25] VITALS: BP 154/82
[2017-05-02 15:47] VITALS: BP 150/76
[2017-05-02 22:36] VITALS: BP 163/90
[2017-05-03 06:12] LABS: BASOPHIL (%) 0.4 % (0-1); EOSINOPHIL (%) 0.1 % (0-5); HEMATOCRIT 30.3 % (36.0-46.0); HEMOGLOBIN 9.3 G/DL (11.9-15.5); IMMATURE GRANULOCYTE (%) 0.5 % (0.0-0.7); LYMPHOCYTE (%) 32.3 % (15-42); LYMPHOCYTE COUNT 2.7 K/uL (1.0-2.8); MCH 26.8 PG (29.0-34.0); MCHC 30.7 G/DL (30.0-36.0); MCV 87.3 FL (83-99); MONOCYTE (%) 7.3 % (3-12); MONOCYTE COUNT 0.6 K/uL (0-0.8); NEUTROPHIL (%) 59.4 % (45-76); NEUTROPHIL COUNT 4.9 K/uL (1.8-6.4); PLATELET COUNT 521 K/uL (156-360); RBC DIS.WIDTH-CV 17.1 % (11.8-14.6); RBC DIS.WIDTH-SD 54.6 % (39-53); RED BLOOD COUNT 3.47 M/uL (3.80-5.20); WHITE BLOOD COUNT 8.2 K/uL (4.1-10.2)
[2017-05-03 07:19] VITALS: BP 170/87
[2017-05-03 11:45] VITALS: BP 180/80
[2017-05-03 16:00] VITALS: BP 172/86
[2017-05-03 23:29] VITALS: BP 164/79
[2017-05-04 11:29] VITALS: BP 154/74
[2017-05-04] MEDS ORDERED: DYNAPEN 250 MG250 MG PO (11:52)
[2017-05-04] MEDS ORDERED: METRONIDAZOLE500 MG PO (11:52)
[2017-05-04 12:00] VITALS: BP 161/73
== END 2017-05-04 15:09 | disposition home or self-care (01) | DRG 603 ==
LOC: EME 17:50 → 2EAST 23:15 → EDOF 23:15 → ENRESERV 23:22 → 2EAST 04-27 00:12
PROVIDERS: Emergency Medicine; Family Medicine
DX: L03.317 Cellulitis of buttock (principal); E46 Unspecified protein-calorie malnutrition; E87.6 Hypokalemia; L02.31 Cutaneous abscess of buttock; E78.5 Hyperlipidemia, unspecified; I10 Essential (primary) hypertension; D64.9 Anemia, unspecified; E83.42 Hypomagnesemia; D72.829 Elevated white blood cell count, unspecified; E11.9 Type 2 diabetes mellitus without complications; K57.20 Diverticulitis of large intestine with perforation and abscess without bleeding; E83.51 Hypocalcemia; E88.09 Other disorders of plasma-protein metabolism, not elsewhere classified; K21.9 Gastro-esophageal reflux disease without esophagitis; E66.9 Obesity, unspecified; Z68.43 Body mass index [BMI] 50.0-59.9, adult; Z79.01 Long term (current) use of anticoagulants; Z79.4 Long term (current) use of insulin; Z79.899 Other long term (current) drug therapy; Z86.711 Personal history of pulmonary embolism
CPT/HCPCS: 72193; 74177; 80048; 80053; 80202; 82330; 83605; 83735; 85025; 87040; 99281; 99285; J2270; J2405; J2543; J3010; J3370; J3475; J3480; J7030; J7040; J7050; S0028

== ENCOUNTER 2017-05-15 11:43 | Inpatient (IN) | payer OTHER ==
[~2017-05-15] VITALS: Ht 147.3 cm; Wt 90.8 kg
[~2017-05-15 11:43] MED LIST changes: +AMOX TR-K CLV1 EAC4 PO; +ATORVASTATIN CA10 MG PO; +DYNAPEN 250 MG250 MG PO; +ENDOCET 5-3251 EACH PO; +LOSARTAN POTAS100 MG PO; +METRONIDAZOLE500 MG PO; +POTASSIUM-9999 MG PO; +TYLENOL EXTRA500 MG PO; +XARELTO20 MG PO
[2017-05-15 14:43] LABS: HEMATOCRIT 27.5 % (36.0-46.0); HEMOGLOBIN 8.9 G/DL (11.9-15.5); MCH 28.1 PG (29.0-34.0); MCHC 32.4 G/DL (30.0-36.0); MCV 86.8 FL (83-99); PLATELET COUNT 485 K/uL (156-360); RBC DIS.WIDTH-CV 18.6 % (11.8-14.6); RED BLOOD COUNT 3.17 M/uL (3.80-5.20); WHITE BLOOD COUNT 8.5 K/uL (4.1-10.2)
[2017-05-15 14:52] LABS: CHLORIDE 100 mEq/L (99-109); SODIUM 139 mEq/L (136-147)
[2017-05-15 14:53] LABS: GLUCOSE 104 mg/dL (70-99)
[2017-05-15 14:57] LABS: CREATININE 0.7 mg/dL (0.6-1.3); GFR ESTIMATE (CALCULATED) > 59 mL/min/
[2017-05-15 14:58] LABS: UREA NITROGEN (BUN) 4 mg/dL (9-23)
[2017-05-15 15:40] LABS: TROP-I INTERPRETATION NEGATIVE; TROPONIN-I 0.05 ng/mL (0.0-0.30)
[2017-05-15] MEDS ORDERED: AUGMENTIN875 MG PO (17:48)
[2017-05-15 18:31] LABS: PREALBUMIN 5.8 mg/dL (10-40)
[2017-05-15 19:45] VITALS: BP 140/80
[2017-05-15 23:45] VITALS: BP 166/85
[2017-05-16 03:26] VITALS: BP 150/72
[2017-05-16 07:20] LABS: ALBUMIN 2.1 G/DL (3.2-4.8); ALKALINE PHOSPHATASE 46 IU/L (3-129); ALT (GPT) 6 IU/L (3-49); AST (GOT) 14 IU/L (2-34); CHLORIDE 100 MEQ/L (99-109); CREATININE 0.6 MG/DL (0.6-1.3); GFR ESTIMATE (CALCULATED) > 59 mL/min/; GLUCOSE 88 mg/dL (70-99); MAGNESIUM 1.3 mg/dl (1.3-2.7); SODIUM 141 MEQ/L (136-147); TOTAL BILIRUBIN 0.5 MG/DL (0.0-1.0); TOTAL PROTEIN 5.3 G/DL (6.4-8.3); UREA NITROGEN (BUN) 3 mg/dL (9-23)
[2017-05-16 07:22] LABS: POTASSIUM 2.6 MEQ/L (3.7-5.4)
[2017-05-16 08:22] VITALS: BP 163/73
[2017-05-16 12:00] VITALS: BP 145/70
[2017-05-16 15:43] VITALS: BP 136/68
[2017-05-16 19:36] VITALS: BP 138/68
[2017-05-16 21:57] LABS: APPEARANCE CLEAR ((CLEAR)); BILIRUBIN NEGATIVE; BLOOD SMALL; COLOR YELLOW ((YELLOW)); GLUCOSE (STRIP) NEGATIVE; KETONES NEGATIVE; LEUKOCYTES NEGATIVE; NITRITE NEGATIVE; PROTEIN (STRIP) NEGATIVE; SPECIFIC GRAVITY 1.011 (1.000-1.030); UROBILINOGEN 0.2 MG/DL (0.2-1.0)
[2017-05-16 22:15] LABS: BACTERIA NONE SEEN /HPF; EPITHELIAL CELLS RARE /HPF; MUCUS TRACE /LPF; RED BLOOD CELLS 0-5 /HPF (0-5); UCUL ADDED? NO; WHITE BLOOD CELLS 0-5 /HPF (0-5)
[2017-05-17] VITALS (7 sets, daily range): BP systolic 102–144; BP diastolic 55–72
[2017-05-17 07:01] LABS: CHLORIDE 98 MEQ/L (99-109); CREATININE 0.6 MG/DL (0.6-1.3); GFR ESTIMATE (CALCULATED) > 59 mL/min/; GLUCOSE 108 mg/dL (70-99); POTASSIUM 2.7 MEQ/L (3.7-5.4); SODIUM 141 MEQ/L (136-147); UREA NITROGEN (BUN) 4 mg/dL (9-23)
[2017-05-18 07:13] LABS: INTER. NORMALIZED RATIO 1.6
[2017-05-18 07:15] LABS: PTT 30.1 SEC (25-37)
[2017-05-18 07:50] LABS: CHLORIDE 103 MEQ/L (99-109); CREATININE 0.6 MG/DL (0.6-1.3); GFR ESTIMATE (CALCULATED) > 59 mL/min/; GLUCOSE 100 mg/dL (70-99); SODIUM 140 MEQ/L (136-147); UREA NITROGEN (BUN) 5 mg/dL (9-23)
[2017-05-18 07:51] LABS: POTASSIUM 3.5 MEQ/L (3.7-5.4)
[2017-05-18 08:54] VITALS: BP 129/68
[2017-05-18 13:30] VITALS: BP 132/70
[2017-05-18 17:49] VITALS: BP 149/72
[2017-05-18 19:11] VITALS: BP 140/72
[2017-05-18 23:40] VITALS: BP 148/72
[2017-05-19 03:45] VITALS: BP 176/73
[2017-05-19 04:00] VITALS: BP 152/58
[2017-05-19] MEDS ORDERED: ENDOCET 5-3251 EACH PO (06:06)
[2017-05-19 06:39] LABS: CHLORIDE 103 MEQ/L (99-109); CREATININE 0.4 MG/DL (0.6-1.3); GFR ESTIMATE (CALCULATED) > 59 mL/min/; GLUCOSE 108 mg/dL (70-99); POTASSIUM 3.8 MEQ/L (3.7-5.4); SODIUM 139 MEQ/L (136-147); UREA NITROGEN (BUN) 6 mg/dL (9-23)
[2017-05-19 06:57] LABS: C DIFF TOXIN NEGATIVE (NEGATIVE)
[2017-05-19 07:36] VITALS: BP 168/87
[2017-05-19 09:48] LABS: HEMOGLOBIN 7.6 G/DL (11.9-15.5); MCV 90.6 FL (83-99)
[2017-05-19 15:55] VITALS: BP 114/70
[2017-05-19 23:38] VITALS: BP 143/77
[2017-05-20 06:44] LABS: BASOPHIL (%) 0.5 % (0-1); EOSINOPHIL (%) 1.5 % (0-5); EOSINOPHIL COUNT 0.1 K/uL (0-0.3); HEMATOCRIT 24.5 % (36.0-46.0); HEMOGLOBIN 7.3 G/DL (11.9-15.5); IMMATURE GRANULOCYTE (%) 0.6 % (0.0-0.7); LYMPHOCYTE (%) 26.5 % (15-42); LYMPHOCYTE COUNT 2.3 K/uL (1.0-2.8); MCH 27.1 PG (29.0-34.0); MCHC 29.8 G/DL (30.0-36.0); MCV 91.1 FL (83-99); MONOCYTE (%) 8.5 % (3-12); MONOCYTE COUNT 0.7 K/uL (0-0.8); NEUTROPHIL (%) 62.4 % (45-76); NEUTROPHIL COUNT 5.4 K/uL (1.8-6.4); PLATELET COUNT 500 K/uL (156-360); RBC DIS.WIDTH-CV 19.3 % (11.8-14.6); RBC DIS.WIDTH-SD 63.7 % (39-53); RED BLOOD COUNT 2.69 M/uL (3.80-5.20); WHITE BLOOD COUNT 8.6 K/uL (4.1-10.2)
[2017-05-20 07:03] LABS: CHLORIDE 103 MEQ/L (99-109); CREATININE 0.6 MG/DL (0.6-1.3); GFR ESTIMATE (CALCULATED) > 59 mL/min/; GLUCOSE 101 mg/dL (70-99); POTASSIUM 4.1 MEQ/L (3.7-5.4); SODIUM 139 MEQ/L (136-147); UREA NITROGEN (BUN) 6 mg/dL (9-23)
[2017-05-20 07:25] VITALS: BP 126/60
[2017-05-20 15:25] VITALS: BP 129/65
[2017-05-20] MEDS ORDERED: METOPROLOL SUCC50 MG PO (16:05)
[2017-05-20] MEDS ORDERED: KLOR-CON20 MEQ PO (16:07)
[2017-05-20] MEDS ORDERED: TUMS ULTRA ST1177 MG PO (16:08)
== END 2017-05-20 18:33 | disposition home health service (06) | DRG 393 ==
LOC: EME 11:43 → EDOF 17:45 → 5EAST 17:45 → ENRESERV 17:46 → 5EAST 19:17
PROVIDERS: Family Medicine; Nurse Practitioner Family; Radiology Diagnostic Radiology
PROC: 0W9J30Z Drainage of Pelvic Cavity with Drainage Device, Percutaneous Approach (ICD-10-PCS; principal; 2017-05-19)
DX: K63.2 Fistula of intestine (principal); E43 Unspecified severe protein-calorie malnutrition; E83.51 Hypocalcemia; E87.6 Hypokalemia; K91.841 Postprocedural hemorrhage of a digestive system organ or structure following other procedure; Y83.8 Other surgical procedures as the cause of abnormal reaction of the patient, or of later complication, without mention of misadventure at the time of the procedure; I48.0 Paroxysmal atrial fibrillation; D64.9 Anemia, unspecified; K57.20 Diverticulitis of large intestine with perforation and abscess without bleeding; L02.31 Cutaneous abscess of buttock; E66.01 Morbid (severe) obesity due to excess calories; Z68.41 Body mass index [BMI] 40.0-44.9, adult; E11.9 Type 2 diabetes mellitus without complications; I10 Essential (primary) hypertension; E78.5 Hyperlipidemia, unspecified; K21.9 Gastro-esophageal reflux disease without esophagitis; K76.0 Fatty (change of) liver, not elsewhere classified; Z86.711 Personal history of pulmonary embolism; Z79.01 Long term (current) use of anticoagulants
CPT/HCPCS: 10030; 72192; 74176; 74177; 80048; 80053; 81003; 83605; 83735; 84134; 84484; 85014; 85018; 85025; 85027; 85610; 85730; 87040; 87070; 87075; 87077; 87106; 87186; 87205; 87493; 93005; 99281; 99285; C1729; C1753; C1769; J1170; J2543; J3010; J3480; J7030; J7040; J7050

== ENCOUNTER 2017-06-03 13:21 | Inpatient (IN) | payer OTHER ==
[~2017-06-03] VITALS: Ht 147.3 cm; Wt 83.9 kg
[~2017-06-03 13:21] MED LIST changes: +AUGMENTIN875 MG PO; +KLOR-CON20 MEQ PO; +METOPROLOL SUCC50 MG PO; +TUMS ULTRA ST1177 MG PO
[2017-06-03 14:27] LABS: HEMATOCRIT 27.1 % (36.0-46.0); HEMOGLOBIN 8.5 G/DL (11.9-15.5); MCH 29.1 PG (29.0-34.0); MCHC 31.4 G/DL (30.0-36.0); MCV 92.8 FL (83-99); PLATELET COUNT 777 K/uL (156-360); RBC DIS.WIDTH-CV 20.1 % (11.8-14.6); RBC DIS.WIDTH-SD 68.2 % (39-53); RED BLOOD COUNT 2.92 M/uL (3.80-5.20); WHITE BLOOD COUNT 11.3 K/uL (4.1-10.2)
[2017-06-03 14:28] LABS: BASOPHIL (%) 0.3 % (0-1); EOSINOPHIL (%) 0.4 % (0-5); EOSINOPHIL COUNT 0.1 K/uL (0-0.3); IMMATURE GRANULOCYTE (%) 0.4 % (0.0-0.7); LYMPHOCYTE (%) 27.2 % (15-42); LYMPHOCYTE COUNT 3.1 K/uL (1.0-2.8); MONOCYTE (%) 8.7 % (3-12); NEUTROPHIL COUNT 7.1 K/uL (1.8-6.4)
[2017-06-03 14:38] LABS: CHLORIDE 99 mEq/L (99-109); POTASSIUM 4.8 mEq/L (3.7-5.4); SODIUM 132 mEq/L (136-147)
[2017-06-03 14:39] LABS: GLUCOSE 109 mg/dL (70-99)
[2017-06-03 14:43] LABS: CREATININE 0.8 mg/dL (0.6-1.3); GFR ESTIMATE (CALCULATED) > 59 mL/min/
[2017-06-03 14:44] LABS: UREA NITROGEN (BUN) 11 mg/dL (9-23)
[2017-06-03] MEDS ORDERED: POTASSIUM20 MEQ/11 PO (21:32)
[2017-06-03] MEDS ORDERED: FENTANYL1 EAC5 TD (21:33)
[2017-06-03] MEDS ORDERED: OMEPRAZOLE20 MG PO (21:33)
[2017-06-03] MEDS ORDERED: LOSARTAN POTAS100 MG PO (21:34)
[2017-06-03] MEDS ORDERED: TUMS ULTRA ST1177 MG PO (21:35)
[2017-06-04 00:13] VITALS: BP 132/65
[2017-06-04 04:30] VITALS: BP 120/63
[2017-06-04 06:39] LABS: HEMATOCRIT 25.6 % (36.0-46.0); HEMOGLOBIN 7.7 G/DL (11.9-15.5); MCH 28.1 PG (29.0-34.0); MCHC 30.1 G/DL (30.0-36.0); MCV 93.4 FL (83-99); PLATELET COUNT 668 K/uL (156-360); RBC DIS.WIDTH-CV 19.9 % (11.8-14.6); RBC DIS.WIDTH-SD 68.5 % (39-53); RED BLOOD COUNT 2.74 M/uL (3.80-5.20)
[2017-06-04 08:22] VITALS: BP 142/62
[2017-06-04 14:57] VITALS: BP 149/70
[2017-06-04 19:26] VITALS: BP 130/81
[2017-06-04 23:39] VITALS: BP 152/71
[2017-06-05] VITALS (12 sets, daily range): BP systolic 107–162; BP diastolic 60–82
[2017-06-06 04:17] VITALS: BP 139/66
[2017-06-06 08:11] VITALS: BP 139/86
[2017-06-06 08:33] LABS: HEMATOCRIT 33.8 % (36.0-46.0); MCH 29.8 PG (29.0-34.0); MCHC 32.2 G/DL (30.0-36.0); MCV 92.3 FL (83-99); PLATELET COUNT 597 K/uL (156-360); RBC DIS.WIDTH-CV 17.7 % (11.8-14.6); RBC DIS.WIDTH-SD 59.6 % (39-53)
[2017-06-06 08:59] LABS: HEMOGLOBIN 10.9 G/DL (11.9-15.5); RED BLOOD COUNT 3.66 M/uL (3.80-5.20)
[2017-06-06 09:06] LABS: CHLORIDE 102 MEQ/L (99-109); CREATININE 0.6 MG/DL (0.6-1.3); GFR ESTIMATE (CALCULATED) > 59 mL/min/; GLUCOSE 147 mg/dL (70-99); POTASSIUM 4.5 MEQ/L (3.7-5.4); SODIUM 133 MEQ/L (136-147); UREA NITROGEN (BUN) 6 mg/dL (9-23)
[2017-06-06 11:23] VITALS: BP 145/67
[2017-06-06 16:59] VITALS: BP 162/77
[2017-06-06 19:57] VITALS: BP 147/68
[2017-06-06 23:43] VITALS: BP 140/68
[2017-06-07 03:30] VITALS: BP 126/71
[2017-06-07 08:00] VITALS: BP 141/79
[2017-06-07 16:16] VITALS: BP 136/72
[2017-06-07 20:15] VITALS: BP 150/78
[2017-06-07 23:47] VITALS: BP 122/63
[2017-06-08 04:19] VITALS: BP 144/82
[2017-06-08 07:36] VITALS: BP 115/68
[2017-06-08 08:46] LABS: HEMATOCRIT 32.9 % (36.0-46.0); HEMOGLOBIN 10.2 G/DL (11.9-15.5); MCH 29.2 PG (29.0-34.0); MCV 94.3 FL (83-99); PLATELET COUNT 573 K/uL (156-360); RBC DIS.WIDTH-CV 16.7 % (11.8-14.6); RBC DIS.WIDTH-SD 58.6 % (39-53); RED BLOOD COUNT 3.49 M/uL (3.80-5.20); WHITE BLOOD COUNT 11.2 K/uL (4.1-10.2)
[2017-06-08 09:15] LABS: CHLORIDE 100 MEQ/L (99-109); CREATININE 0.5 MG/DL (0.6-1.3); GFR ESTIMATE (CALCULATED) > 59 mL/min/; GLUCOSE 112 mg/dL (70-99); SODIUM 135 MEQ/L (136-147); UREA NITROGEN (BUN) 9 mg/dL (9-23)
[2017-06-08 11:58] VITALS: BP 135/72
[2017-06-08 16:17] VITALS: BP 140/68
[2017-06-08 20:35] VITALS: BP 145/71
[2017-06-09] VITALS (7 sets, daily range): BP systolic 125–162; BP diastolic 68–90
[2017-06-10] VITALS (7 sets, daily range): BP systolic 118–151; BP diastolic 67–86
[2017-06-11 00:04] VITALS: BP 123/65
[2017-06-11 04:52] VITALS: BP 132/64
[2017-06-11 06:37] LABS: BASOPHIL (%) 0.3 % (0-1); EOSINOPHIL (%) 1.5 % (0-5); EOSINOPHIL COUNT 0.2 K/uL (0-0.3); HEMATOCRIT 30.4 % (36.0-46.0); HEMOGLOBIN 9.5 G/DL (11.9-15.5); IMMATURE GRANULOCYTE (%) 0.7 % (0.0-0.7); LYMPHOCYTE (%) 14.4 % (15-42); LYMPHOCYTE COUNT 1.5 K/uL (1.0-2.8); MCH 29.1 PG (29.0-34.0); MCHC 31.3 G/DL (30.0-36.0); MONOCYTE (%) 8.9 % (3-12); NEUTROPHIL (%) 74.2 % (45-76); NEUTROPHIL COUNT 7.9 K/uL (1.8-6.4); PLATELET COUNT 566 K/uL (156-360); RBC DIS.WIDTH-CV 16.1 % (11.8-14.6); RBC DIS.WIDTH-SD 54.9 % (39-53); RED BLOOD COUNT 3.27 M/uL (3.80-5.20); WHITE BLOOD COUNT 10.7 K/uL (4.1-10.2)
[2017-06-11 07:05] LABS: CHLORIDE 100 MEQ/L (99-109); CREATININE 0.5 MG/DL (0.6-1.3); GFR ESTIMATE (CALCULATED) > 59 mL/min/; GLUCOSE 100 mg/dL (70-99); SODIUM 135 MEQ/L (136-147); UREA NITROGEN (BUN) 4 mg/dL (9-23)
[2017-06-11 07:06] LABS: POTASSIUM 3.1 MEQ/L (3.7-5.4)
[2017-06-11 07:40] VITALS: BP 151/71
[2017-06-11 16:00] VITALS: BP 142/70
[2017-06-11 23:32] VITALS: BP 156/80
[2017-06-12 05:24] LABS: BASOPHIL (%) 0.3 % (0-1); EOSINOPHIL COUNT 0.1 K/uL (0-0.3); HEMATOCRIT 29.4 % (36.0-46.0); HEMOGLOBIN 9.5 G/DL (11.9-15.5); IMMATURE GRANULOCYTE (%) 0.7 % (0.0-0.7); LYMPHOCYTE (%) 16.8 % (15-42); LYMPHOCYTE COUNT 1.6 K/uL (1.0-2.8); MCH 29.6 PG (29.0-34.0); MCHC 32.3 G/DL (30.0-36.0); MCV 91.6 FL (83-99); MONOCYTE (%) 8.1 % (3-12); MONOCYTE COUNT 0.8 K/uL (0-0.8); NEUTROPHIL (%) 73.1 % (45-76); NEUTROPHIL COUNT 6.8 K/uL (1.8-6.4); PLATELET COUNT 568 K/uL (156-360); RBC DIS.WIDTH-SD 53.9 % (39-53); RED BLOOD COUNT 3.21 M/uL (3.80-5.20); WHITE BLOOD COUNT 9.4 K/uL (4.1-10.2)
[2017-06-12 05:52] LABS: CHLORIDE 99 MEQ/L (99-109); CREATININE 0.5 MG/DL (0.6-1.3); GFR ESTIMATE (CALCULATED) > 59 mL/min/; GLUCOSE 96 mg/dL (70-99); POTASSIUM 3.6 MEQ/L (3.7-5.4); SODIUM 134 MEQ/L (136-147); UREA NITROGEN (BUN) 4 mg/dL (9-23)
[2017-06-12 08:30] VITALS: BP 166/82
[2017-06-12 16:13] VITALS: BP 139/91
[2017-06-12 23:05] VITALS: BP 158/84
[2017-06-13 02:58] LABS: C DIFF TOXIN POSITIVE (NEGATIVE)
[2017-06-13 07:28] VITALS: BP 147/84
[2017-06-13 16:41] VITALS: BP 168/78
[2017-06-13 23:22] VITALS: BP 158/81
[2017-06-14 06:13] LABS: BASOPHIL (%) 0.5 % (0-1); EOSINOPHIL (%) 2.1 % (0-5); EOSINOPHIL COUNT 0.2 K/uL (0-0.3); HEMATOCRIT 29.9 % (36.0-46.0); HEMOGLOBIN 9.4 G/DL (11.9-15.5); IMMATURE GRANULOCYTE (%) 0.6 % (0.0-0.7); LYMPHOCYTE COUNT 1.7 K/uL (1.0-2.8); MCH 28.7 PG (29.0-34.0); MCHC 31.4 G/DL (30.0-36.0); MCV 91.4 FL (83-99); MONOCYTE (%) 9.8 % (3-12); MONOCYTE COUNT 0.9 K/uL (0-0.8); NEUTROPHIL COUNT 5.8 K/uL (1.8-6.4); PLATELET COUNT 584 K/uL (156-360); RBC DIS.WIDTH-SD 53.6 % (39-53); RED BLOOD COUNT 3.27 M/uL (3.80-5.20); WHITE BLOOD COUNT 8.7 K/uL (4.1-10.2)
[2017-06-14 07:20] LABS: CHLORIDE 99 MEQ/L (99-109); CREATININE 0.5 MG/DL (0.6-1.3); GFR ESTIMATE (CALCULATED) > 59 mL/min/; GLUCOSE 80 mg/dL (70-99); SODIUM 138 MEQ/L (136-147); UREA NITROGEN (BUN) 3 mg/dL (9-23)
[2017-06-14 07:24] LABS: POTASSIUM 2.3 MEQ/L (3.7-5.4)
[2017-06-14 08:00] VITALS: BP 128/70
[2017-06-14 16:35] VITALS: BP 135/74
[2017-06-14 20:00] VITALS: BP 145/55
[2017-06-14 23:19] VITALS: BP 139/77
[2017-06-15 08:45] VITALS: BP 142/68
[2017-06-15 09:26] LABS: BASOPHIL (%) 0.3 % (0-1); EOSINOPHIL (%) 0.9 % (0-5); EOSINOPHIL COUNT 0.1 K/uL (0-0.3); HEMATOCRIT 32.7 % (36.0-46.0); HEMOGLOBIN 10.7 G/DL (11.9-15.5); IMMATURE GRANULOCYTE (%) 0.3 % (0.0-0.7); LYMPHOCYTE (%) 17.3 % (15-42); LYMPHOCYTE COUNT 2.2 K/uL (1.0-2.8); MCH 29.7 PG (29.0-34.0); MCHC 32.7 G/DL (30.0-36.0); MCV 90.8 FL (83-99); MONOCYTE (%) 6.6 % (3-12); MONOCYTE COUNT 0.8 K/uL (0-0.8); NEUTROPHIL (%) 74.6 % (45-76); NEUTROPHIL COUNT 9.5 K/uL (1.8-6.4); PLATELET COUNT 618 K/uL (156-360); RBC DIS.WIDTH-CV 15.9 % (11.8-14.6); RBC DIS.WIDTH-SD 53.7 % (39-53); WHITE BLOOD COUNT 12.8 K/uL (4.1-10.2)
[2017-06-15 09:49] LABS: CHLORIDE 99 MEQ/L (99-109); CREATININE 0.5 MG/DL (0.6-1.3); GFR ESTIMATE (CALCULATED) > 59 mL/min/; POTASSIUM 2.7 MEQ/L (3.7-5.4); SODIUM 138 MEQ/L (136-147); UREA NITROGEN (BUN) 3 mg/dL (9-23)
[2017-06-15 09:53] LABS: GLUCOSE 134 mg/dL (70-99)
[2017-06-15 15:41] VITALS: BP 126/72
[2017-06-15 19:51] VITALS: BP 130/80
[2017-06-15 23:55] VITALS: BP 128/74
[2017-06-16 05:30] LABS: BASOPHIL (%) 0.4 % (0-1); EOSINOPHIL (%) 1.9 % (0-5); EOSINOPHIL COUNT 0.2 K/uL (0-0.3); HEMATOCRIT 29.2 % (36.0-46.0); HEMOGLOBIN 9.5 G/DL (11.9-15.5); IMMATURE GRANULOCYTE (%) 0.3 % (0.0-0.7); LYMPHOCYTE (%) 18.1 % (15-42); LYMPHOCYTE COUNT 1.8 K/uL (1.0-2.8); MCH 29.7 PG (29.0-34.0); MCHC 32.5 G/DL (30.0-36.0); MCV 91.3 FL (83-99); MONOCYTE COUNT 0.9 K/uL (0-0.8); NEUTROPHIL (%) 70.3 % (45-76); NEUTROPHIL COUNT 6.9 K/uL (1.8-6.4); PLATELET COUNT 574 K/uL (156-360); RBC DIS.WIDTH-CV 16.1 % (11.8-14.6); RBC DIS.WIDTH-SD 53.5 % (39-53); WHITE BLOOD COUNT 9.8 K/uL (4.1-10.2)
[2017-06-16 05:53] LABS: CHLORIDE 103 MEQ/L (99-109); CREATININE 0.5 MG/DL (0.6-1.3); GFR ESTIMATE (CALCULATED) > 59 mL/min/; GLUCOSE 116 mg/dL (70-99); SODIUM 141 MEQ/L (136-147); UREA NITROGEN (BUN) 2 mg/dL (9-23)
[2017-06-16 05:54] LABS: POTASSIUM 3.6 MEQ/L (3.7-5.4)
[2017-06-16 08:04] VITALS: BP 134/62
[2017-06-16 16:26] VITALS: BP 142/60
[2017-06-16 23:40] VITALS: BP 138/78
[2017-06-17 06:08] LABS: BASOPHIL (%) 0.5 % (0-1); BASOPHIL COUNT 0.1 K/uL (0-0.1); EOSINOPHIL (%) 2.4 % (0-5); EOSINOPHIL COUNT 0.2 K/uL (0-0.3); HEMATOCRIT 31.5 % (36.0-46.0); HEMOGLOBIN 9.9 G/DL (11.9-15.5); IMMATURE GRANULOCYTE (%) 0.4 % (0.0-0.7); LYMPHOCYTE (%) 29.6 % (15-42); MCH 29.1 PG (29.0-34.0); MCHC 31.4 G/DL (30.0-36.0); MCV 92.6 FL (83-99); MONOCYTE (%) 9.4 % (3-12); NEUTROPHIL (%) 57.7 % (45-76); NEUTROPHIL COUNT 5.9 K/uL (1.8-6.4); PLATELET COUNT 558 K/uL (156-360); RBC DIS.WIDTH-CV 16.2 % (11.8-14.6); RBC DIS.WIDTH-SD 54.8 % (39-53); WHITE BLOOD COUNT 10.2 K/uL (4.1-10.2)
[2017-06-17 06:46] LABS: CHLORIDE 101 MEQ/L (99-109); CREATININE 0.5 MG/DL (0.6-1.3); GFR ESTIMATE (CALCULATED) > 59 mL/min/; GLUCOSE 88 mg/dL (70-99); POTASSIUM 3.6 MEQ/L (3.7-5.4); SODIUM 140 MEQ/L (136-147); UREA NITROGEN (BUN) 2 mg/dL (9-23)
[2017-06-17 08:09] VITALS: BP 124/68
[2017-06-17 16:30] VITALS: BP 126/74
[2017-06-17 23:51] VITALS: BP 142/86
[2017-06-18 06:13] LABS: BASOPHIL (%) 0.5 % (0-1); EOSINOPHIL (%) 3.7 % (0-5); EOSINOPHIL COUNT 0.3 K/uL (0-0.3); HEMATOCRIT 30.2 % (36.0-46.0); HEMOGLOBIN 9.6 G/DL (11.9-15.5); IMMATURE GRANULOCYTE (%) 0.5 % (0.0-0.7); LYMPHOCYTE (%) 29.3 % (15-42); LYMPHOCYTE COUNT 2.4 K/uL (1.0-2.8); MCH 29.7 PG (29.0-34.0); MCHC 31.8 G/DL (30.0-36.0); MCV 93.5 FL (83-99); MONOCYTE (%) 10.9 % (3-12); MONOCYTE COUNT 0.9 K/uL (0-0.8); NEUTROPHIL (%) 55.1 % (45-76); NEUTROPHIL COUNT 4.4 K/uL (1.8-6.4); PLATELET COUNT 562 K/uL (156-360); RBC DIS.WIDTH-SD 54.8 % (39-53); RED BLOOD COUNT 3.23 M/uL (3.80-5.20)
[2017-06-18 06:26] LABS: CHLORIDE 101 MEQ/L (99-109); CREATININE 0.6 MG/DL (0.6-1.3); GFR ESTIMATE (CALCULATED) > 59 mL/min/; GLUCOSE 93 mg/dL (70-99); SODIUM 136 MEQ/L (136-147); UREA NITROGEN (BUN) 4 mg/dL (9-23)
[2017-06-18 06:31] LABS: POTASSIUM 4.4 MEQ/L (3.7-5.4)
[2017-06-18 08:00] VITALS: BP 120/68
[2017-06-18] MEDS ORDERED: VANCOMYCIN125 MG/2.5 PO (11:40)
[2017-06-18] MEDS ORDERED: ENDOCET 5-3251 EACH PO (11:40)
== END 2017-06-18 15:05 | disposition home or self-care (01) | DRG 330 ==
LOC: EME 13:21 → EDOF 20:51 → 3EAST 20:51 → ENRESERV 20:52 → 3EAST 22:03
PROVIDERS: Internal Medicine; Physician Assistant; Physician Assistant Surgical; Student in an Organized Health Care Education/Training Program; Surgery
DX: K57.20 Diverticulitis of large intestine with perforation and abscess without bleeding (principal); A04.72 Enterocolitis due to Clostridium difficile, not specified as recurrent; L02.31 Cutaneous abscess of buttock; L03.317 Cellulitis of buttock; K66.0 Peritoneal adhesions (postprocedural) (postinfection); N73.6 Female pelvic peritoneal adhesions (postinfective); K56.7 Ileus, unspecified; E83.51 Hypocalcemia; E87.6 Hypokalemia; I48.0 Paroxysmal atrial fibrillation; I10 Essential (primary) hypertension; E78.5 Hyperlipidemia, unspecified; E11.9 Type 2 diabetes mellitus without complications; K21.9 Gastro-esophageal reflux disease without esophagitis; D64.9 Anemia, unspecified; E66.9 Obesity, unspecified; Z53.31 Laparoscopic surgical procedure converted to open procedure; Z68.38 Body mass index [BMI] 38.0-38.9, adult; Z86.711 Personal history of pulmonary embolism; Z79.01 Long term (current) use of anticoagulants; Z79.82 Long term (current) use of aspirin
CPT/HCPCS: 74019; 74177; 80048; 83605; 85025; 85027; 86850; 86900; 86901; 86920; 87040; 87070; 87075; 87205; 87493; 94799; 99281; 99285; J0131; J0330; J0744; J1100; J1170; J1644; J2270; J2405; J2710; J2765; J3010; J3480; J7030; J7040; P9016; S0020; S0030